=== PATIENT | male | born 1995 | race Caucasian/White ===

== ENCOUNTER 2022-02-13 19:41 | Emergency (ER) | payer OTHER ==
[~2022-02-13] VITALS: Ht 170.2 cm; Wt 70.3 kg
[2022-02-13 20:16] VITALS: BP 142/64
--- NOTE | 2022-02-13 20:30 | NUR ---
SEEN AND EXAMINED BY
--- NOTE | 2022-02-13 20:52 | NUR ---
PT TAKEN TO ULTRASOUND
[2022-02-13] MEDS ORDERED: cefTRIAXone 250 MG in LIDOCAINE MPF 1% 0.9 ML IM ONE (22:55)
[2022-02-13] MEDS ORDERED: DOXY-487 PO (22:57)
[2022-02-13] MEDS ORDERED: cefTRIAXone 250 MG VIAL ONE (23:02)
[2022-02-13] MEDS ORDERED: LIDOCAINE MPF 1% 5 ML ONE (23:02)
[2022-02-13 23:10] VITALS: BP 122/64
--- NOTE | 2022-02-13 23:11 | NUR ---
Patient discharged with v/s stable. Written and verbal after care instructions given and explained. Patient alert, oriented and verbalized understanding of instructions. Ambulatory with steady gait. All questions addressed prior to discharge. ID band removed. Patient advised to follow up with PMD. Rx SENT TO PHARMACY. Patient educated on indication of medication including possible reaction and side effects. Opportunity to ask questions provided and answered.
== END 2022-02-13 23:11 | disposition home or self-care (01) ==
LOC: MED 19:41
DX: N45.1 Epididymitis (principal); N50.82 Scrotal pain; R03.0 Elevated blood-pressure reading, without diagnosis of hypertension; Z79.2 Long term (current) use of antibiotics
CPT/HCPCS: 76870; 87491; 96372; 99284; J0696; J2001; Q0092